=== PATIENT | male | born 1940 | race Caucasian/White ===

== ENCOUNTER 2023-08-21 20:18 | Inpatient (IN) | payer MEDICARE, SELFPAY ==
[2023-08-21 20:31] VITALS: BP 95/62; PULSE 88; RESP 18; TEMP 36.6; O2SAT 99; BMI 19.3
--- NOTE | 2023-08-21 22:35 | XRR_ITS ---
PROCEDURE INFORMATION: Exam: XR Chest Exam date and time: 08/22/2023 12:15 AM Age: 83 years old Clinical indication: Shortness of breath; Additional info: SOB TECHNIQUE: Imaging protocol: Radiologic exam of the chest. Views: 1 view. COMPARISON: No relevant prior studies available. FINDINGS: Limitations: Patient rotation. Lungs: Moderate interstitial coarsening is nonspecific, likely chronic change. No pulmonary consolidation. Pleural spaces: No pleural effusion or pneumothorax. Heart/Mediastinum: Cardiomediastinal silhouette is suboptimally evaluated due to patient rotation. Vasculature: Atherosclerotic calcifications of the aorta are noted. Bones/joints: No acute osseous abnormalities are seen. XR/XR chest 1V portable [id number] IMPRESSION: Moderate interstitial coarsening is nonspecific, likely chronic change. Edema or atypical infection could also cause this appearance.
[2023-08-21 22:37] VITALS: BP 101/82; PULSE 90; RESP 18; O2SAT 100
[2023-08-21 22:41] LABS: Basophils % 0.2 %; Eosinophils # 0.1 10^3/uL (0.0-0.8); Eosinophils % 1.5 %; Lymphocytes # 0.4 10^3/uL (0.8-4.8); Lymphocytes % 6.5 %; Mean Corpuscular Hemoglobin 28.8 pg (27-33); Mean Corpuscular Volume 92.9 fl (82-101); Mean Platelet Volume 11.2 fL (7.4-10.4); Monocytes # 0.6 10^3/uL (0.2-0.9); Monocytes % 9.5 %; Neutrophils # 5.02 10^3/uL (1.8-7.7); Neutrophils % 81.8 %; Nucleated Red Blood Cells % 0.7 %; Platelet Count 144 10^3/cmm (157-399); Red Blood Count 2.26 10^6/uL (3.85-5.65); White Blood Count 6.13 10^3/uL (3.29-11.43)
[2023-08-21 23:00] LABS: Anion Gap 26.1 (5-19); Calcium 7.8 mg/dL (8.5-10.5); Carbon Dioxide 16 mmol/L (22-29); Chloride 100 mmol/L (98-107); Creatinine Clr Calc Pharmacy 5.3783; Glucose 103 mg/dL (65-115); Potassium 6.1 mmol/L (3.5-5.1); Sodium 136 mmol/L (136-145)
[2023-08-21 23:08] LABS: Osmolality Calculated 330 mOsm/kg (285-295)
[2023-08-21 23:09] LABS: Blood Urea Nitrogen 146 mg/dL (8-23)
[2023-08-22] VITALS (45 sets, daily range): BP systolic 80–128; BP diastolic 51–92; PULSE 82–103; RESP 7–23; TEMP 34.9–36.4; O2SAT 91–100; BMI 19.1
--- NOTE | 2023-08-22 01:00 | CTR_ITS ---
PROCEDURE INFORMATION: Exam: CT Abdomen And Pelvis Without Contrast Exam date and time: 08/22/2023 1:09 AM Age: 83 years old Clinical indication: Abnormal findings; Abnormal lab test; Abnormal kidney function lab tests; Patient HX: Anemia with acute renal failure. Bun of 146 and creat of 9.7 TECHNIQUE: Imaging protocol: Computed tomography of the abdomen and pelvis without contrast. Radiation optimization: All CT scans at this facility use at least one of these dose optimization techniques: automated exposure control; mA and/or kV adjustment per patient size (includes targeted exams where dose is matched to clinical indication); or iterative reconstruction. COMPARISON: CR XR chest 1V portable [id number] 08/22/2023 12:15 AM RADIATION DOSE METRICS: Total DLP (mGy-cm): 494.17 FINDINGS: Pleural spaces: Small bilateral pleural effusions with adjacent atelectasis. Heart: Moderate cardiomegaly. No pericardial effusion. Liver: Normal. No mass. Gallbladder and biliary ducts: Gallbladder not well assessed though appears decompressed. Questionable intra and extrahepatic ductal dilatation, not well assessed. Pancreas: The pancreas is not well assessed. Spleen: The spleen is normal. Adrenal glands: The adrenals are not well assessed. Kidneys and ureters: Severe bilateral hydroureteronephrosis the level of the urinary bladder. Stomach and bowel: No evidence of large or small bowel obstruction. Evaluation for bowel wall thickening is limited. Appendix: A normal appendix is not identified. There is no secondary evidence of acute appendicitis. Intraperitoneal space: Hazy diffuse increased density throughout the mesentery likely related to diffuse edema. No fluid collections identified. No obvious focal inflammatory changes. Vasculature: Atherosclerotic calcifications of the aorta are present. No aneurysm is identified. Lymph nodes: Questionable small lymph node adjacent to the rectum which may be related to the prostate measuring 8 x 6 mm. No other obviously enlarged lymph nodes are seen. Urinary bladder: Moderate to markedly distended urinary bladder multiple bladder diverticula, likely related to marked prostatomegaly. Reproductive: Severe prostatomegaly. Extraperitoneal space: Perirectal edema may be related to diffuse edematous change, not well assessed. Bones/joints: No acute osseous abnormalities are seen. Soft tissues: Severe anasarca. CT/CT kidney stone [id number] IMPRESSION: 1. Severe bilateral hydroureteronephrosis the level of the urinary bladder. 2. Moderate to markedly distended urinary bladder multiple bladder diverticula, likely related to marked prostatomegaly. 3. Diffuse increased density throughout the mesentery likely related to diffuse edema. Severe anasarca and small pleural effusions are noted. 4. Questionable intra and extrahepatic ductal dilatation, not well assessed. Correlate with serum bilirubin.
[2023-08-22] MEDS: sodium bicarbonate 8.4% 1 mEq/mL 50mL Syr 50 MEQ IVP (01:22)
[2023-08-22] MEDS: dextrose 10% 250 ML 999 ML IV (01:27)
--- NOTE | 2023-08-22 01:29 | P.HP_ITS ---
Providers/Chief Complaint 2 Chief Complaint: Fatigue History of Present Illness Marleni Montaño is a 83 year old male who present to the hospital with chief complaint generalized weakness and fatigue, recurrent falls, not been able to eat, complaining of chest tightness. In the ER he has been diagnosed with significant anemia, MICHELLE, hyperkalemia. I requested Eubanks catheter placement CT abdomen pelvis. Patient currently is hemodynamically stable on room air. Patient is not endorsing previous history of stroke cancer MS or CHF. He did not provide much history stating that he wanted to void urine. Review of Systems 2 Const: Reports: chills, body aches and change in weight Eyes: Denies: change in vision ENMT: Denies: throat pain Card: Reports: palpitations; Denies: chest pain Resp: Reports: dyspnea GI: Reports: nausea : Denies: flank pain Musc: Denies: neck pain Skin/Breast: Denies: rash Neuro: Denies: headache(s) Psych: Denies: anxiety Medications/Allergies Allergies Allergy/AdvReac Type Severity Reaction Status Date / Time No Known Allergies Allergy Verified 08/22/23 01:26 Vitals/I&O/Wt Last Vital Signs Temp 97.9 F 08/21/23 20:31 Pulse 90 08/21/23 22:37 Resp 18 08/21/23 22:37 BP 101/82 08/21/23 22:37 Pulse Ox 100 08/21/23 22:37 O2 Del Method Room Air 08/21/23 22:37 Weight last 48 hrs Weight 61.235 kg Physical Exam 2 Narrative: Unkept appearance Anasarca Muscle mass loss Protein calorie malnourishment Awake and alert Very hard of hearing Skin bruises and petechiae noted S1, S2 Hemodynamic stable Currently on room air NIH 0 Nonfocal neuroexam Fatigued and tired Data 08/21/23 22:32 08/21/23 22:32 A&P Assessment and plan (1) Hyperkalemia: (2) MICHELLE (acute kidney injury): (3) Physical deconditioning: (4) Sarcopenia: (5) Thrombocytopenia: (6) Anemia: Plan Generalized weakness and fatigue Malaise Anasarca sarcopenia protein calorie malnourishment Unkept appearance Requested CT abdomen pelvis to rule out postobstructive causes of MICHELLE MICHELLE: Post renal obstruction related to prostamegaly causing bladder outlet obstruction Repeat BMP in the morning Requested Eubanks catheter placement No previous creatinine level to compare BUN 146 No typical uremic symptoms Anemia: Normocytic: No hemodynamic instability may be chronic in nature. Patient not a good historian. Check B12 iron folic acid Hyperkalemia: Given hyperkalemia cocktail Deconditioning: Will request PT once patient is more stable New onset CHF: Anasarca Requested echo Full code Goals of care should be discussed with the family once patient is more awake and alert Attestations 2 Medical Necessity Statement*: More than 2 midnights anticipated Diagnoses Hyperkalemia E87.5 MICHELLE (acute kidney injury) N17.9 Physical deconditioning R53.81 Sarcopenia M62.84 Thrombocytopenia D69.6 Anemia D64.9
[2023-08-22] MEDS: albuterol 2.5 mg/3 mL Neb INHALATION (01:30)
[2023-08-22] MEDS: insulin regular-human 100 units/1 mL 9 UNIT IVP (02:04)
[2023-08-22] MEDS: sodium chloride 0.9% 1,000 ML 999 ML IV ×2 (02:09)
[2023-08-22 02:13] LABS: Glucose Point of Care 182 mg/dL (70-110)
[2023-08-22 03:42] LABS: Glucose Point of Care 80 mg/dL (70-110)
[2023-08-22] MEDS: FUROsemide 10 mg/mL SDV 10mL 20 MG IVP (03:53)
[2023-08-22 04:00] LABS: Thyroid Stimulating Hormone 4.12 uIU/mL (0.27-4.20); Vitamin B12 1794 pg/mL (232-1245)
[2023-08-22 04:01] LABS: Estmated Average Glucose 103; Hemoglobin A1C 5.2 % (4.0-6.0)
[2023-08-22 04:01] LABS: Add Urine Culture? Yes; Add Urine Microscopic? YES; Bacteria Urine 3+ /hpf; Bilirubin Urine Neg (Negative); Blood Urine 3+ (Negative); Glucose Urine UA Norm (Normal); Ketones Urine Negative (Negative); Leukocyte Esterase Urine 2+ (Negative); Nitrate Urine Negative (Negative); Protein Urine 1+ (Negative); Squamous Epithelial Cell Urine 0-4 /hpf (0-5); Urine Appearance Cloudy (CLEAR); Urine Color Yellow (Yellow); Urobilinogen Urine Neg (Negative); WBC Urine 80-100 /hpf (0-5); pH Urine 6 (5-7)
--- NOTE | 2023-08-22 04:04 | ECG_ITS ---
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 Measurements Intervals [place] Rate: 89 P: 76 DC: 217 QRS: -57 QRSD: 114 T: 143 QT: 380 QTc: 465 Interpretive Statements SINUS RHYTHM WITH FIRST DEGREE AV BLOCK LEFT ANTERIOR FASCICULAR BLOCK [QRS AXIS <= -45, QR IN I, RS IN II] ANTERIOR MYOCARDIAL INFARCTION , indetermine duration Lateral leads ST changes suggestive of ischemia No previous ECG available for comparison Electronically Signed On 08-22-2023 13:19:30 CDT by Jonah Sinclair M.D. [id number]
--- NOTE | 2023-08-22 04:15 | W.ED.WEAKNES ---
HPI - Weakness General: Chief complaint: Weakness Stated complaint: Fatigue Time Seen by Provider: 08/21/23 23:10 History of Present Illness: 83-year-old gentleman presenting from home. He has confusion and generalized weakness. He does not see a doctor, and has not done so in years. He is a poor historian, and does not give much of the history himself. Physical Exam Const: GENERAL APPEARANCE: cooperative, disheveled, ill appearing and frail appearing NUTRITIONAL APPEARANCE: thin ORIENTATION/CONSCIOUSNESS: Yes awake, Yes oriented to person and Yes oriented to place HENMT: COMMON NORMALS: normocephalic, atraumatic and Normal external nose present HEAD & SCALP: normocephalic and atraumatic FACE & SINUS: normal facial exam and face symmetric NOSE: Normal external nose present Eye: COMMON NORMALS: Equal, round and reactive pupils present and EOMs intact bilaterally PUPIL: Yes Equal, round and reactive pupils present Neck/C-Spine: GENERAL: Yes trachea midline Chest: CHEST: Yes Symmetrical chest wall rise Resp: COMMON NORMALS: normal respiratory effort, No retractions, No use of accessory muscles and clear to auscultation bilaterally AUSCULTATION: clear to auscultation bilaterally Cardio: COMMON NORMALS: regular rate and regular rhythm RATE: regular rate RHYTHM: regular rhythm GI: PALPATION: Yes Tenderness to palpation present (GI) Extremity: COMMON NORMALS: no pedal edema Neuro: GURINDER COMA SCALE: document GCS findings [place] coma scale eye opening: Spontaneous [place] coma scale verbal response: Confused [place] coma scale motor response: Obey commands [place] coma scale total score: 14 SENSORIUM/ORIENTATION: Yes oriented to person and Yes oriented to place SENSORY EXAM: Yes extremities (intact) Psych: COMMON NORMALS: speech normal SPEECH: Yes normal speech Skin: COMMON NORMALS: no rashes or lesions noted GENERAL SKIN EXAM: no rashes or lesions noted Course Vital Signs: Vital signs: Vital Signs Temperature 97.9 F 08/21/23 20:31 Pulse Rate 91 08/22/23 02:13 Respiratory Rate 18 08/22/23 01:31 Blood Pressure 103/78 08/22/23 02:13 Pulse Oximetry 97 08/22/23 02:13 Oxygen Delivery Me thod Room Air 08/22/23 02:13 MDM - Weakness Medical Decision Making This patient is confused apparently at baseline. He is mildly hypotensive. Other laboratories are not remarkable. His hemoglobin is 6.5. His creatinine is 9.7 with a BUN of 146. His potassium is 6.1. He is given a hypokalemia cocktail of sodium bicarbonate, insulin and glucose, albuterol. He is given 2 L of fluid. Abdominal CT reveals severe bilateral hydroureteronephrosis likely due to the urinary outlet obstruction from an enlarged prostate that is significantly enlarged. Eubanks was placed, and immediately 1 L of urine was put out. This was followed by continuous output following. Chest x-ray shows chronic findings. The patient will be admitted, rehydrated, renal function watch closely, etc. Lab Data 08/21/23 22:32 08/21/23 22:32 Radiology Impressions Chest X-Ray 08/21/23 22:35 IMPRESSION: Moderate interstitial coarsening is nonspecific, likely chronic change. Edema or atypical infection could also cause this appearance. Abdomen/Pelvis CT 08/22/23 01:00 IMPRESSION: 1. Severe bilateral hydroureteronephrosis the level of the urinary bladder. 2. Moderate to markedly distended urinary bladder multiple bladder diverticula, likely related to marked prostatomegaly. 3. Diffuse increased density throughout the mesentery likely related to diffuse edema. Severe anasarca and small pleural effusions are noted. 4. Questionable intra and extrahepatic ductal dilatation, not well assessed. Correlate with serum bilirubin. Laboratory Results WBC 6.13 10^3/uL (3.29-11.43) 08/21/23: RBC 2.26 10^6/uL (3.85-5.65) L 08/21/23: Hgb 6.50 g/dL (11.27-16.99) L* 08/21/23: Hct 21.0 % (37-53) L 08/21/23: MCV 92.9 fl (82-101) 08/21/23: MCH 28.8 pg (27-33) 08/21/23: MCHC 31.0 g/dL (30-55) 08/21/23: RDW 17.0 % (12.1-15.1) H 08/21/23: Plt Count 144 10^3/cmm (157-399) L 08/21/23: MPV 11.2 fL (7.4-10.4) H 08/21/23 22:32 Neut % (Auto) 81.8 % 08/21/23 22: Lymph % (Auto) 6.5 % 08/21/23 22:32 [place] % (Auto) 9.5 % 08/21/23 22:32 Eos % (Auto) 1.5 % 08/21/23 22:32 Baso % (Auto) 0.2 % 08/21/23 22: Neut # (Auto) 5.02 10^3/uL (1.8-7.7) 08/21/23 22: Lymph # (Auto) 0.4 10^3/uL (0.8-4.8) L 08/21/23 22: [place] # (Auto) 0.6 10^3/uL (0.2-0.9) 08/21/23 22: Eos # (Auto) 0.1 10^3/uL (0.0-0.8) 08/21/23 22: Baso # (Auto) 0.0 10^3/uL (0.0-0.1) 08/21/23 22: Nucleated RBC % (auto) 0.7 % 08/21/23: Nucleated RBCs # 0.0 /100WBC 08/21/23 22:32 Sodium 136 mmol/L (136-145) 08/21/23 22: Potassium 6.1 mmol/L (3.5-5.1) H 08/21/23 22:32 Chloride 100 mmol/L (98-107) 08/21/23 22: Carbon Dioxide 16 mmol/L (22-29) L 08/21/23 22:32 Anion Gap 26.1 (5-19) H 08/21/23 22:32 BUN 146 mg/dL (8-23) H* 08/21/23 22:32 Creatinine 9.7 mg/dL (0.7-1.2) H* 08/21/23 22:32 GFR Calculation Not Reportable 08/21/23 22:32 Glucose 103 mg/dL (65-115) 08/21/23 22:32 Estimat Average Glucose 103 08/21/23 22:32 Hemoglobin A1c 5.2 % (4.0-6.0) 08/21/23 22:32 Calculated Osmolality 330 mOsm/kg (285-295) H 08/21/23 22:32 Calcium 7.8 mg/dL (8.5-10.5) L 08/21/23 22:32 Vitamin B12 1794 pg/mL (232-1245) H 08/21/23 22:32 TSH 4.12 uIU/mL (0.27-4.20) 08/21/23 22:32 All radiology interpretation(s) finalized by discharge Discharge Plan Discharge Patient Disposition: Admitted As Inpatient Admit Provider: Jacy Lane Clinical Impression: MICHELLE (acute kidney injury), Hyperkalemia, Acute on chronic urinary retention Condition: Stable Coding Level of Care Code ED Physical Therapist Assistant for Sophia Kelsey
--- NOTE | 2023-08-22 05:01 | ECG_ITS ---
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 Measurements Intervals [place] Rate: 95 P: 4 [place]: 233 QRS: -57 QRSD: 118 T: 126 QT: 373 QTc: 470 Interpretive Statements SINUS RHYTHM WITH FIRST DEGREE AV BLOCK ANTEROLATERAL MYOCARDIAL INFARCTION , PROBABLY RECENT [40+ ms Q WAVE IN I/aVL/V3-V6] Compared to ECG 08/22/2023 04:09:00 No significant changes Electronically Signed On 08-22-2023 13:24:09 CDT by Jonah Sinclair M.D. [id number]
[2023-08-22 05:11] LABS: Anion Gap 28.1 (5-19); Calcium 7.2 mg/dL (8.5-10.5); Carbon Dioxide 14 mmol/L (22-29); Chloride 104 mmol/L (98-107); Creatinine Clr Calc Pharmacy 5.6705; Glucose 62 mg/dL (65-115); Magnesium 1.9 mg/dL (1.7-2.3); Phosphorus 6.4 mg/dL (2.5-4.5); Potassium 5.1 mmol/L (3.5-5.1); Sodium 141 mmol/L (136-145)
[2023-08-22 05:13] LABS: Troponin(5th) Baseline 1323 ng/L (0-15)
[2023-08-22] MEDS: lidocaine 2% viscous 15 ML, aluminum-mag hydrox-simethicon 30 ML, sucralfate oral liq 1 GM PO (05:19)
[2023-08-22] MEDS: morphine 4 mg/mL SDV 1 mL 2 MG IVP ×2 (05:20→10:42)
[2023-08-22 05:33] LABS: Basophils % 0.2 %; Eosinophils # 0.1 10^3/uL (0.0-0.8); Eosinophils % 1.2 %; Hematocrit 23.7 % (37-53); Lymphocytes # 0.5 10^3/uL (0.8-4.8); Lymphocytes % 10.5 %; Mean Corpuscular Hemoglobin 29.5 pg (27-33); Mean Corpuscular Volume 98.3 fl (82-101); Mean Platelet Volume 11.5 fL (7.4-10.4); Monocytes # 0.3 10^3/uL (0.2-0.9); Monocytes % 6.7 %; Neutrophils # 3.99 10^3/uL (1.8-7.7); Neutrophils % 80.4 %; Nucleated Red Blood Cells % 0.6 %; Platelet Count 141 10^3/cmm (157-399); Red Blood Count 2.41 10^6/uL (3.85-5.65); Red Cell Distribution Width 17.2 % (12.1-15.1); White Blood Count 4.96 10^3/uL (3.29-11.43)
[2023-08-22 05:37] LABS: Osmolality Calculated 336 mOsm/kg (285-295)
[2023-08-22 05:38] LABS: Blood Urea Nitrogen 141 mg/dL (8-23)
[2023-08-22 05:42] LABS: NT Pro B Type Natriuretic Pept > 35000 pg/mL (0-450)
[2023-08-22 05:45] LABS: Glucose Point of Care 89 mg/dL (70-110)
--- NOTE | 2023-08-22 05:50 | PC.NURSE ---
Pt complaint of severe chest pain shortly after arriving on the floor. Vitals taken 0400 106/81 HR 90. Pt complaint of feeling like something was sitting on his chest. Physician called, EKG ordered and trop series results sent to [facility]. Pt continued to scream out in pain was very agitated trying to get out of bed and O2 at this time 80%. O2 applied and DR called again. At this time ordered GI cocktail and troponins another EKG ordered. After troponin resulted 1323 temp 95.8 rectally orders for ICU were given. Patient wheeled downstairs with belongings by this nurse and family called to notify of transfer.
[2023-08-22] MEDS: glucagon 1 mg/mL KIT 1 mL IM (05:56)
[2023-08-22 05:59] LABS: Glucose Point of Care 65 mg/dL (70-110)
[2023-08-22 06:14] LABS: Ferritin 121 ng/mL (30-400); Iron 14 ug/dL (59-158); Percent Saturation 5.7 % (20-50); Total Iron Binding Capacity 244 mcg/dl; Unsaturated Iron Binding 230 ug/dL (112-347)
[2023-08-22] MEDS: sodium bicarbonate 150 MEQ in dextrose 5% 1,000 ML 100 MEQ IV (06:16)
--- NOTE | 2023-08-22 06:21 | ECG_ITS ---
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 Measurements Intervals [place] Rate: 93 P: 76 SC: 211 QRS: -58 QRSD: 121 T: 134 QT: 358 QTc: 445 Interpretive Statements SINUS RHYTHM WITH FIRST DEGREE AV BLOCK POSSIBLE RIGHT VENTRICULAR CONDUCTION DELAY [RSR (QR) IN V1/V2] LEFT ANTERIOR FASCICULAR BLOCK [QRS AXIS <= -45, QR IN I, RS IN II] ANTEROLATERAL MYOCARDIAL INFARCTION , PROBABLY RECENT [40+ ms Q WAVE IN I/aVL/V3-V6] ACUTE [place] Compared to ECG 08/22/2023 05:01:04 No significant changes Electronically Signed On 08-22-2023 16:09:14 CDT by Jonah Sinclair M.D. [id number]
--- NOTE | 2023-08-22 06:29 | PC.NURSE ---
Patient arrived from [facility] at 0550. Patient was confused, screaming and thrashing around. POC blood glucose was 65, Glucagon given as ordered. Oxygen saturation was 75% on 5L nc, patient placed on 15L nonrebreather. Patient short of breath, complaining of chest pain. Rectal temp 94.8, dontrell hugger applied. Patient's abdomen very distended and hard. Dr. Lane notified of these findings and ordered bipap. Patient is cyanotic. Sore on right side of his chin. Blood sugar is up to 83, on Bicard drip in D5. Bipap placed by RT. Unable to obtain SPO2 on on fingers or forehead. Patient remains confused and screaming.
[2023-08-22 06:45] LABS: Glucose Point of Care 83 mg/dL (70-110)
[2023-08-22 06:49] LABS: Glucose Point of Care 98 mg/dL (70-110)
--- NOTE | 2023-08-22 07:22 | PC.NURSE ---
Blood transfusion ordered and ready from the blood bank. 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 is also in this ICU and also currently mentally incompetent to make decisions. Nurse called Son Gregg Montaño for consent. Gregg stated that the patient is jehovah witness and is adamant to not receive blood products.
[2023-08-22 07:32] LABS: Troponin 5 2HR Delta -47 ABS# (0-10)
--- NOTE | 2023-08-22 07:33 | P.CONIM_ITS ---
Providers/Reason For Consult 2 Consulting Physician/Specialty*: Dangelo English MD, telemetry nephrology Reason for Consult*: Acute kidney injury, increased anion gap metabolic acidosis Requesting Physician: Dr Karli Lane Attending Physician: Jacy Lane MD History of Present Illness History of Present Illness Marleni Montaño is a 83 year old male admitted through the ER yesterday with worsening mental status. Patient was found to have acute kidney injury increased anion gap metabolic acidosis, hyperkalemia. Patient CT scan showing severe bilateral hydroureteronephrosis with bladder swelling. The patient a Eubanks placed with good urine output. The patient was also found to be anemic. Per the chart the patient has Jehovah's Witnesses police and does not want to get blood transfusion. Patient had a non-ST elevation [place]. The patient was transferred to the ICU. Renal was called to see the patient. The patient is confused and unable to give me history. Review of Systems 2 Narrative: Confused short of breath. Unable to give a history due to poor mental status Medications/Allergies Allergies Allergy/AdvReac Type Severity Reaction Status Date / Time No Known Allergies Allergy Verified 08/22/23 01:26 Current Medications Generic Name Dose Route Start Last Admin Trade Name Freq PRN Reason Stop Dose Admin Furosemide 20 mg 08/22/23 03:17 08/22/23 03:53 Furosemide 10 Mg/Ml Sdv 10ml IVP 20 mg Q24H CATERINA Administration Sodium Bicarbonate 150 meq/ 1,150 mls @ 100 mls/hr 08/22/23 05:52 08/22/23 06:16 Dextrose IV 08/22/23 17:21 100 mls/hr .[id number] ONE Administration Vitals/I&O/Wt Last Vital Signs Temp 94.8 F L 08/22/23 06:29 Pulse 96 08/22/23 07:18 Resp 11 L 08/22/23 07:15 BP 113/87 08/22/23 07:15 Pulse Ox 100 08/22/23 05:20 O2 Del Method Room Air 08/22/23 05:20 FiO2 100 08/22/23 06:24 08/21/23 08/22/23 08/22/23 22:59 06:59 14:59 Intake Total 1250 / 1250 Output Total 1925 / 1925 500 / 500 Balance -675 / -675 -500 / -500 Weight last 48 hrs Weight 58.151 kg Weight 60.464 kg Weight 61.235 kg Physical Exam 2 Narrative: Elderly man in bed sitting up fighting with the staff. Has BiPAP on. HEENT normocephalic atraumatic. Neck is supple Lungs dull bases otherwise clear. Heart regular positive S1-S2 Abdomen soft positive bowel sounds. Extremities foot edema. Positive Eubanks catheter. Neuro confused Patient seen and examined using A/V equipment with a nurse as a telehealth visit Urinary Catheter Management: Eubanks: Cath Placed During This Visit: yes Reason for Continuing Indwelling Catheter: Accurate Measurement of Urinary Output in Critically Ill Patients Urinary Catheter Date of Insertion: 08/22/23 Urinary Catheter Time of Insertion: 02:25 Data 08/22/23 05:26 08/22/23 04:42 A&P Assessment and plan (1) MICHELLE (acute kidney injury): 83-year-old gentleman 1. Acute kidney injury from bilateral hydroureteronephrosis and enlarged bladder. Concern for prostate etiology of obstructive uropathy. I am also concerned the patient could have another obstructing mass or malignancy that could have caused his acute kidney injury. Please have urology see the patient. Based on imaging and blood test this is likely been a very chronic process. I will therefore take time for his kidney function to improve now that we have cleared his obstruction. And his renal function may not improve. At this time I will continue bicarbonate drip. Monitor for dialysis needs. 2. Non-ST elevation OH as per cardiology 3. Anemia from iron deficiency and renal failure. Will give Epogen and IV iron. Patient's family is refusing blood as they are Yarsanism. 4. Hyperkalemia has improved from a potassium of 6.1-5.1 5. Increased anion gap metabolic acidosis the patient is on bicarb drip we will check an ABG. 6. Creatinine improved from 9.7-9.2. 7. Hyperphosphatemia can monitor for now may need a binder. 7. UTI will give ceftriaxone monitor urine culture. Patient seen and examined using A/V equipment. Patient is confused. The nurse to help significantly in this patient. Plan See above. Consult Attestations 2 Medical Necessity Statement: UTI, obstructive uropathy, altered mental status, anemia Time Spent in Patient Care: Greater than 35 minutes (>than 50% of time spent in counselling and/or direct pt care on unit) . Coding Level of Care Code Acute Code for Chg Fwd Diagnoses MICHELLE (acute kidney injury) N17.9
[2023-08-22 07:35] LABS: Troponin 5 2HR 1276 ng/L (0-15)
[2023-08-22] MEDS: haloperidol inj 5 mg/mL INJ 1 mL 1 MG IM (07:57)
[2023-08-22] MEDS: ferric gluconate 125 MG in sodium chloride 0.9% (100 ml) 100 ML 110 MG IV (07:59)
[2023-08-22] MEDS: epoetin alfa 10,000 unit/mL INJ 10000 UNIT SUBCUT (08:00)
[2023-08-22 08:04] LABS: ABG PCO2 26.8 mmHg (35-45); ABG PH Result 7.37 (7.35-7.45); Alveolar-Arterial Oxygen Gradi 44.3 mmHg (5-10); Arterial Blood Gas Hematocrit 24.2 % (42-52); Blood Gas Allen Test Pos; Blood Gas Operator Identificat CAK; Blood Gas Sample Site Brachial, left; Blood Gas Sample Type Arterial; Carboxyhemoglobin 1.2 %THgb (0.4-20.1); HCO3 ABG 15.4 mmol/L (22-26); HGB O2 Sat 99.1 % (95-100); Methemoglobin 0.4 % (0.4-1.5); Oxygen Device BIPAP; Oxygen Saturation ABG > 100.0; PO2 FiO2 Ratio Arterial Blood 332; Potassium Level - ABG 5.2 mmol/L (3.5-5.0); Total Hemoglobin 7.9 g/dL (14-18)
[2023-08-22 08:14] LABS: Hepatitis C Virus Antibody Non-Reactive (Nonreactive)
--- NOTE | 2023-08-22 08:26 | PC.NURSE ---
Patient is complaining of stomach gas , keeps trying to get out of bed. Patient is demanding to be allowed to eat baking soda. NUrse has explained to the patient that he has a suspected GI bleed, has had a heart attack, and very low blood levels. He is unable to get out of bed safely. patient is also attempting to pull off bipap and pull out aragon catheter. NUrse alerted Dr gray to patient behaviors as well as critical lab which recently resulted (troponin of 1276). Received orders for IM haldol. Haldol administered. Patient has started to become calmer after 20 minutes. Still requires frequent redirection and close observation.
[2023-08-22] MEDS: pantoprazole 40 mg SDV IVP (09:07)
[2023-08-22] MEDS: cefTRIAXone 1,000 MG in sodium chloride 0.9% (plus) 50 ML 100 MG IV (09:09)
[2023-08-22 09:29] LABS: C.Diff PCR (Lab) NEGATIVE (Negative)
--- NOTE | 2023-08-22 10:08 | ECG_ITS ---
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 Measurements Intervals [place] Rate: 96 P: 52 [place]: 199 QRS: -63 QRSD: 121 T: 112 QT: 377 QTc: 478 Interpretive Statements SINUS RHYTHM POSSIBLE RIGHT VENTRICULAR CONDUCTION DELAY [RSR (QR) IN V1/V2] LEFT ANTERIOR FASCICULAR BLOCK [QRS AXIS <= -45, QR IN I, RS IN II] ANTEROLATERAL MYOCARDIAL INFARCTION , PROBABLY RECENT [40+ ms Q WAVE IN I/aVL/V3-V6] ACUTE [place] Compared to ECG 08/22/2023 06:36:03 First degree AV block no longer present Myocardial infarct finding still present (Pt is for comfort measures due to co-morbidities) Electronically Signed On 08-22-2023 16:08:01 CDT by Jonah Sinclair M.D. [id number]
[2023-08-22 10:17] LABS: Glucose Point of Care 115 mg/dL (70-110)
--- NOTE | 2023-08-22 10:32 | P.MISC_ITS ---
Miscellaneous Note Purpose of Documentation: Patient's case was discussed extensively with son. States that patient and his were previously Jehovah's Witnesses, though they have not practiced in 10 years to hold some of the same believes. Patient's son believes to the best of his knowledge that his father would not be okay receiving any kind of blood products or albumin. Discussed with him that patient has NSTEMI which is unable to be anticoagulated, unable to give antiplatelet agents due to severe anemia as recommended by cardiology per discussion with hospitalist overnight. Fecal occult blood is negative. Unknown how long patient's creatinine has been at 9. Suspect that patient may have chronic kidney disease with worsening anemia over several months. He is complaining of abdominal pain which may be community engagement representative of developing mesenteric necrosis. CT of the abdomen and pelvis showed bilateral hydronephrosis and severe bladder outlet obstruction. Patient has a Eubanks catheter in place. 1000 cc of urine was obtained after placement of the Eubanks catheter. Since then he has had 50 cc of urine output. Patient is currently showing signs of multiorgan failure with renal failure, may need dialysis. Discussed with the son the possibility of dialysis , son indicates that they would be okay with dialysis. Nephrology recommends urology assessment, discussed with son that we do not have any urology services at our hospital. I offered transfer to a higher center that would have urology serv ices available, however son declines this transfer. Apparently patient had refused to come to the hospital even today. He was only brought in by EMS when his was sick and needed to come to the hospital, patient himself was noted to be altered by EMS and was brought in as a patient additionally. He would want to remain at the same hospital as his therefore transfer has been declined. With his multiorgan failure involving the heart (NSTEMI), kidney failure , severe anemia, possible developing mesenteric ischemia, patient's prognosis is extremely grave. Patient's son would like to continue medical management for now, however with any deterioration in his clinical status, will proceed with comfort care management Reviewed management of severe anemia and blood loss patient protocol from other bloodless hospitals and published research. Will order iron sucrose 100 mg IV for 5 days, erythropoietin 20,000 units subcutaneously once daily for 5 days, discussed with son that EPO in itself may be thrombogenic in nature, folic acid 1 mg p.o. twice daily, vitamin B12 1000 mcg IM one-time. (Management of anemia in patients who de last blood transfusion PM ID:?[id number]?DOI:[email or web address]) .
[2023-08-22] MEDS: epoetin alfa 20,000 unit/mL MDV (ESRD) 20000 UNIT SUBCUT (10:54)
[2023-08-22 10:55] LABS: Basophils % 0.2 %; Hematocrit 22.7 % (37-53); Lymphocytes # 0.1 10^3/uL (0.8-4.8); Lymphocytes % 1.2 %; Mean Corpuscular HGB Conc 30.8 g/dL (30-55); Mean Corpuscular Volume 97.4 fl (82-101); Mean Platelet Volume 10.6 fL (7.4-10.4); Monocytes # 0.5 10^3/uL (0.2-0.9); Monocytes % 4.4 %; Neutrophils # 10.51 10^3/uL (1.8-7.7); Neutrophils % 93.6 %; Nucleated Red Blood Cells % 0.2 %; Platelet Count 134 10^3/cmm (157-399); Red Blood Count 2.33 10^6/uL (3.85-5.65); Red Cell Distribution Width 17.2 % (12.1-15.1); White Blood Count 11.23 10^3/uL (3.29-11.43)
[2023-08-22 11:10] LABS: Anion Gap 23.1 (5-19); Carbon Dioxide 19 mmol/L (22-29); Chloride 100 mmol/L (98-107); Creatinine Clr Calc Pharmacy 5.0478; Glucose 171 mg/dL (65-115); Potassium 5.1 mmol/L (3.5-5.1); Sodium 137 mmol/L (136-145)
[2023-08-22 11:14] LABS: Vitamin B12 1747 pg/mL (232-1245)
[2023-08-22 12:22] LABS: Troponin 5 6HR 1099 ng/L (0-15); Troponin 5 6HR Delta -224 ng/L (0-12)
[2023-08-22 12:23] LABS: Osmolality Calculated 332 mOsm/kg (285-295)
[2023-08-22 12:24] LABS: Blood Urea Nitrogen 135 mg/dL (8-23)
[2023-08-22 13:29] LABS: Glucose Point of Care 125 mg/dL (70-110)
--- NOTE | 2023-08-22 13:50 | P.CONIM_ITS ---
Providers/Reason For Consult 2 Consulting Physician/Specialty*: Cardiology Reason for Consult*: NSTEMI Requesting Physician: Dr. Rogers Attending Physician: Oxana Rogers MD History of Present Illness History of Present Illness Marleni Montaño is a 83 year old male with significant comorbidities admitted last night with multiple problems including acute on chronic renal failure with a creatinine of more than 9, potassium 6, marked anemia hemoglobin less than 7. His troponin was also elevated with ST changes on the EKG, likely acute WA. Since admission patient has been managed very conservatively due to multiple comorbidities as well as patient and family being Jehovah witness and refusing blood transfusion. Apparently patient also had some acute abdominal pathology and the surgery is not being planned because of same reasons. Currently patient is lying comfortably in the bed. He is opens eyes to the verbal commands but very poor historian. He seems to deny any chest discomfort although it is difficult to communicate the patient because of his current mental status. Review of Systems 2 Narrative: Detail systemic review unable to obtain from the patient. Patient is semiresponsive and not communicative. Medications/Allergies Allergies Allergy/AdvReac Type Severity Reaction Status Date / Time albumin colloid, human AdvReac Unknown refuses - Verified 08/22/23 10:34 JW blood products AdvReac Unknown JW Uncoded 08/22/23 10:34 patient- refuses Current Medications Generic Name Dose Route Start Last Admin Trade Name Freq PRN Reason Stop Dose Admin Epoetin Tanner 20,000 unit 08/22/23 10:45 08/22/23 10:54 Epoetin Tanenr 20,000 Unit/Ml Mdv (Esrd) SUBCUT 20,000 unit Q24H CATERINA Administration Haloperidol Lactate 1 mg 08/22/23 07:54 08/22/23 07:57 Haloperidol Inj 5 Mg/Ml Inj 1 Ml IM 1 mg Q4H PRN Administration AGITATION Ceftriaxone Sodium 1,000 mg/ 50 mls @ 100 mls/hr 08/22/23 09:00 08/22/23 10:08 Sodium Chloride IV Infused DAILY CATERINA Infusion Protocol Sodium Bicarbonate 150 meq/ 1,150 mls @ 100 mls/hr 08/22/23 05:52 08/22/23 06:16 Dextrose IV 08/22/23 17:21 100 mls/hr .[id number] ONE Administration Morphine Sulfate 2 mg 08/22/23 10:24 08/22/23 10:42 Morphine 4 Mg/Ml Sdv 1 Ml IVP 2 mg Q4H PRN Administration SEVERE PAIN Pantoprazole Sodium 40 mg 08/22/23 09:00 08/22/23 09:07 Pantoprazole 40 Mg Sdv IVP 40 mg BID CATERINA Administration Senna/Docusate Sodium 1 tab 08/22/23 09:00 08/22/23 08:58 Sennosides-Docusate Tablet PO Not Given DAILY CATERINA Vitals/I&O/Wt Last Vital Signs Temp 97.5 F L 08/22/23 09:15 Pulse 92 08/22/23 09:30 Resp 12 08/22/23 10:42 BP 106/79 08/22/23 09:30 Pulse Ox 98 08/22/23 10:42 O2 Del Method BiPAP 08/22/23 09:24 FiO2 30 08/22/23 09:24 08/21/23 08/22/23 08/22/23 22:59 06:59 14:59 Intake Total 1250 / 1250 160 / 160 Output Total 1925 / 1925 675 / 675 Balance -675 / -675 -515 / -515 Weight last 48 hrs Weight 128 lb 3.2 oz Weight 133 lb 4.8 oz Weight 135 lb Physical Exam 2 Narrative: Patient laying comfortably on the bed. He appears not to be any respiratory or any other distress from pain. Vitals reveal blood pressure 104/72. Pulse 90/min regular. Const: OTHER: Patient is a weak lethargic. Appears pale and malnourished. HENMT: OTHER: Pale skin. There there are elevated neck veins however difficult to assess proper JVD. Resp: OTHER: Good air entry bilaterally. There are some rales at the bases more on the left side. Cardio: OTHER: Sinus tachycardia with a normal first and sound and there there is soft systolic murmur at the aortic area. Likely aortic sclerosis and due to anemia. GI: OTHER: Soft nontender abdomen. Bowel sounds audible. Extremity: OTHER: Patient appears to move all 4 limbs. Trace pedal edema bilaterally. Neuro: OTHER: Patient responsive to verbal commands however difficult to communicate. Moves all 4 limbs. Skin: OTHER: Warm and dry. Urinary Catheter Management: Eubanks: Cath Placed During This Visit: yes Reason for Continuing Indwelling Catheter: Accurate Measurement of Urinary Output in Critically Ill Patients Urinary Catheter Date of Insertion: 08/22/23 Urinary Catheter Time of Insertion: 02:25 Data 08/22/23 10:35 08/22/23 10:35 Micro: Microbiology 08/22/23 08:15 Occult Blood (FIT) - Final Stool - Stool Aspirate A&P Assessment and plan (1) NSTEMI (non-ST elevated myocardial infarction): Plan 83-year-old gentleman with significant comorbidities now admitted with multiple acute systemic pathologies including acute on chronic renal failure elevated potassium and elevated troponin, NSTEMI. Patient is markedly anemic with hemoglobin less than 7. Patient is in the family has refused blood transfusion and due to being a Jehovah witness. Patient is now being managed medically. Considering the degree of anemia he is not a candidate for dual antiplatelets or anticoagulation. If blood pressure allows I recommend low-dose of beta-jewel. And oral nitro. Not a candidate for coronary angio or any active intervention. Rest of systemic pathologies management as per medicine team. Coding Level of Care Code Acute [facility] Diagnoses NSTEMI (non-ST elevated myocardial infarction) I21.4
[2023-08-22 14:33] LABS: Potassium, Radom Urine 38 mmol/L; Urine Creatinine 53 mg/dL (39-259); Urine Random Chloride 40 mmol/L; Urine Random Sodium 51 mmol/L
--- NOTE | 2023-08-22 16:40 | P.PN_ITS ---
Subjective 2 Subjective: Had an extensive discussion with son earlier this morning on the phone. Thereafter patient presented at bedside this afternoon and again had a lengthy discussion with him and the patient at bedside. Patient is currently more awake than before. He is able to correctly state his name, age, date of . I presented him with the information that he is suffering currently from multiorgan failure including NSTEMI, kidney failure, severe anemia. Discussed recommendations for blood transfusion, hemodialysis, inability to anticoagulate or use antiplatelets due to low hemoglobin. Discussed that none of the other interventions such as angiogram, or dialysis would be feasible without undergoing blood transfusion and trying to get his hemoglobin up. Discussed fecal occult blood being negative. Patient was unable to repeat any of the information presented to him. I asked him if he would like us to proceed with any of the interventions discussed above, he states that he would as long as he is allowed to take a shower and get up in bed. When presented with the fact that current walking or bathing are unrelated to angiogram or dialysis, he seems confused and disoriented. I truly do not think patient understands the gravity of information provided to him. He is unable to repeat any information back to me. He states that he is overwhelmed. His son is also stating that patient has been experiencing memory disturbances over the past several months. He has not followed with any physician but family has suspected dementia developing over several months. He has shown some difficult behavior, lack of comprehension and understanding with regards to his living conditions in the past as well. His son states that knowing his father patient would not have wanted any invasive interventions, would not have wanted blood transfusions. He is unlikely to be compliant with long-term dialysis or medications as recommended. He currently lives off the grid , has no water in the home and he is very unlikely to be compliant with follows ups. Son wishes to proceed with comfort care management, focusing on symptom relief only. Medications: Reviewed: Yes Vitals/I&O/Wt Last Vital Signs Temp 96.4 F L 08/22/23 13:45 Pulse 84 08/22/23 14:00 Resp 17 08/22/23 13:45 BP 98/56 08/22/23 13:45 Pulse Ox 100 08/22/23 13:45 O2 Del Method Nasal Cannula 08/22/23 13:45 O2 Flow Rate 2 08/22/23 13:45 FiO2 30 08/22/23 09:24 08/22/23 08/22/23 08/22/23 06:59 14:59 22:59 Intake Total 1250 / 1250 160 / 160 Output Total 1925 / 1925 675 / 675 Balance -675 / -675 -515 / -515 Weight last 48 hrs Weight 58.151 kg Weight 60.464 kg Weight 61.235 kg Physical Exam 2 Narrative: General: able to tell name, age, and place however does not comprehend any medical information that has been presented. HEENT: PERRLA, pupils bilaterally equal and reactive, pallors not present Chest: scattered wheezing B/L CVS: S1-S2 regular, no murmurs, no tachycardia, no gallops, no rubs Abdomen: soft except for firm in the suprapubic region, c/o pain and gas Neuro: no focal motor deficits grossly. Urinary Catheter Management: Eubanks: Cath Placed During This Visit: yes Reason for Continuing Indwelling Catheter: Accurate Measurement of Urinary Output in Critically Ill Patients Urinary Catheter Date of Insertion: 08/22/23 Urinary Catheter Time of Insertion: 02:25 Data 08/22/23 10:35 08/22/23 10:35 Micro: Microbiology 08/22/23 08:15 Occult Blood (FIT) - Final Stool - Stool Aspirate A&P Assessment and plan (1) Hyperkalemia: (2) MICHELLE (acute kidney injury): (3) Physical deconditioning: (4) Sarcopenia: (5) Thrombocytopenia: (6) Anemia: Plan Transition to comfort care management prn morphine for pain management prn ativan for anxiety management Gi cocktail, protonix and tums for dyspepsia Eubanks for comfort Attestations 2 Medical Necessity Statement*: comfort care management Coding Level of Care Code Acute Code for Chg Fwd High Time for a total of 60 minutes, includes reviewing past or interval history, examining/interviewing patient, placing orders, counseling patient/family/other support, updating patient/family/other support, discussing plan of care with staff, communicating with other healthcare providers, documenting encounter and coordinating care Other Coding Information Prolonged care (total time indicated above or notated here) Diagnoses Hyperkalemia E87.5 MICHELLE (acute kidney injury) N17.9 Physical deconditioning R53.81 Sarcopenia M62.84 Thrombocytopenia D69.6 Anemia D64.9
[2023-08-23] VITALS (8 sets, daily range): BP systolic 84–112; BP diastolic 61–76; PULSE 90–96; RESP 16–19; TEMP 36.4; O2SAT 92–94
[2023-08-23] MEDS: morphine 4 mg/mL SDV 1 mL IVP ×4 (03:08→09:06)
[2023-08-23] MEDS: LORazepam 2 mg/mL INJ 1 mL IVP (09:09)
--- NOTE | 2023-08-23 12:58 | P.PN_ITS ---
Subjective 2 Subjective: Patient is on comfort measures As stated Try to get out of bed Requiring more opioids Spoke with the case management, they told me that hospice care at custodial might be [id number], will touch with his son today Vitals/I&O/Wt Last Vital Signs Temp 96.4 F L 08/22/23 13:45 Pulse 96 08/23/23 08:00 Resp 18 08/23/23 09:06 BP 112/76 08/23/23 08:00 Pulse Ox 93 08/23/23 08:00 O2 Del Method Room Air 08/23/23 08:00 O2 Flow Rate 2 08/22/23 13:45 FiO2 30 08/22/23 09:24 08/22/23 08/23/23 08/23/23 22:59 06:59 14:59 Intake Total 1140 / 1300 50 / 50 Output Total 350 / 1025 350 / 350 Balance 1140 / 625 -350 / 275 -300 / -300 Weight last 48 hrs Weight 58.151 kg Weight 60.464 kg Weight 61.235 kg Physical Exam 2 Narrative: Multiple petechiae bruises all lower extremities Patient verbally redirectable Agitated Trying to get out of bed Hemodynamically stable Currently on room air S1, S2 Currently on room air Weak and lethargic Protein calorie malnourishment Urinary Catheter Management: Eubanks: Cath Placed During This Visit: yes Reason for Continuing Indwelling Catheter: Acute Urinary Retention or Obstruction Urinary Catheter Date of Insertion: 08/22/23 Urinary Catheter Time of Insertion: 02:25 Data 08/22/23 10:35 08/22/23 10:35 Micro: Microbiology 08/22/23 02:33 Urine Culture - Preliminary Urine,Clean Catch 08/22/23 08:15 Occult Blood (FIT) - Final Stool - Stool Aspirate A&P Assessment and plan (1) Physical deconditioning: (2) Sarcopenia: (3) Anemia: (4) Acute on chronic urinary retention: (5) Hyperkalemia: (6) MICHELLE (acute kidney injury): (7) Thrombocytopenia: (8) NSTEMI (non-ST elevated myocardial infarction): (9) Need for comfort care: Plan Will touch base with his son to see if he would opt for custodial hospice care, As per the case management there could be a [id number] cost For now we are using Ativan and morphine Patient is hemodynamically stable GI bleed, non-STEMI, MICHELLE, Conservative approach with comfort care for now Attestations 2 Medical Necessity Statement*: Continue medical management Diagnoses Physical deconditioning R53.81 Sarcopenia M62.84 Anemia D64.9 Acute on chronic urinary retention R33.9 Hyperkalemia E87.5 MICHELLE (acute kidney injury) N17.9 Thrombocytopenia D69.6 NSTEMI (non-ST elevated myocardial infarction) I21.4 Need for comfort care
[2023-08-24 01:20] VITALS: RESP 15
[2023-08-24] MEDS: morphine 4 mg/mL SDV 1 mL IVP ×4 (01:20→15:28)
[2023-08-24 08:43] VITALS: RESP 18
--- NOTE | 2023-08-24 11:47 | PM.DCS ---
Discharge Providers Date of Admission: 08/22/23 01:36 Date of Discharge: August 24, 2023 Attending Provider at Admission: Jacy Lane MD Attending Provider at Discharge: Jacy Lane MD Diagnoses at Discharge Discharge Diagnosis (1) Physical deconditioning: Status: Acute (2) Sarcopenia: Status: Acute (3) Anemia: Status: Acute (4) Acute on chronic urinary retention: Status: Acute (5) Hyperkalemia: Status: Acute (6) MICHELLE (acute kidney injury): Status: Acute (7) Thrombocytopenia: Status: Acute (8) NSTEMI (non-ST elevated myocardial infarction): Status: Acute (9) Need for comfort care: Status: Acute Reason for Visit Reason for Visit: Fatigue Hospital Course Hospital Course 83-year-old male who presented to the hospital along his with chief complaint of worsening of shortness of breath, pain at chest discomfort. He was diagnosed with non-STEMI on admission, cardiology was consulted, his hemoglobin was below 7, he was Rastafarian, refused blood transfusion, decision was made not to put him on aspirin Plavix on heparin drip secondary to significant anemia. He also suffered with MICHELLE secondary to bladder outlet obstruction, Eubanks catheter was placed, patient had significant anasarca Case was discussed with the son, patient has no capacity to make decision for himself, son was concerned about his cognitive impairment and dementia, patient was transitioned to comfort care, [facility]. Physical Exam Narrative: Malnourished Unkept appearance Sarcopenia Oriented to himself Eubanks catheter in place Urinary Catheter Management: Eubanks: Cath Placed During This Visit: yes Reason for Continuing Indwelling Catheter: Hospice/Comfort/Palliative Care Urinary Catheter Date of Insertion: 08/22/23 Urinary Catheter Time of Insertion: 02:25 Discharge Data Studies Completed and Pending Completed Studies During Hospitalization Category Date Time Status CT abdomen RS [CT kidney stone [id number]] Stat Cat Scan 08/22/23 01:00 Completed XR chest 1V portable [id number] Stat Exams 08/21/23 22:35 Completed Pending at discharge Category Date Time Status Irradiated Leuko Red RBC Stat Lab 08/22/23 03:26 Results PRBC [Leukocyte Reduced RBC] Routine Lab 08/22/23 03:26 Results Type and Screen Stat Lab 08/22/23 03:26 Results Radiology Impressions Chest X-Ray 08/21/23 22:35 IMPRESSION: Moderate interstitial coarsening is nonspecific, likely chronic change. Edema or atypical infection could also cause this appearance. Abdomen/Pelvis CT 08/22/23 01:00 IMPRESSION: 1. Severe bilateral hydroureteronephrosis the level of the urinary bladder. 2. Moderate to markedly distended urinary bladder multiple bladder diverticula, likely related to marked prostatomegaly. 3. Diffuse increased density throughout the mesentery likely related to diffuse edema. Severe anasarca and small pleural effusions are noted. 4. Questionable intra and extrahepatic ductal dilatation, not well assessed. Correlate with serum bilirubin. Laboratory Results WBC 11.23 10^3/uL (3.29-11.43) 08/22/23 10:35 RBC 2.33 10^6/uL (3.85-5.65) L 08/22/23 10:35 Hgb 7.00 g/dL (11.27-16.99) L 08/22/23 10:35 Hct 22.7 % (37-53) L 08/22/23 10:35 MCV 97.4 fl (82-101) 08/22/23 10:35 MCH 30.0 pg (27-33) 08/22/23 10:35 MCHC 30.8 g/dL (30-55) 08/22/23 10:35 RDW 17.2 % (12.1-15.1) H 08/22/23 10:35 Plt Count 134 10^3/cmm (157-399) L 08/22/23 10:35 MPV 10.6 fL (7.4-10.4) H 08/22/23 10:35 Neut % (Auto) 93.6 % 08/22/23 10:35 Lymph % (Auto) 1.2 % 08/22/23 10:35 [place] % (Auto) 4.4 % 08/22/23 10:35 Eos % (Auto) 0.0 % 08/22/23 10:35 Baso % (Auto) 0.2 % 08/22/23 10:35 Neut # (Auto) 10.51 10^3/uL (1.8-7.7) H 08/22/23 10:35 Lymph # (Auto) 0.1 10^3/uL (0.8-4.8) L 08/22/23 10:35 [place] # (Auto) 0.5 10^3/uL (0.2-0.9) 08/22/23 10:35 Eos # (Auto) 0.0 10^3/uL (0.0-0.8) 08/22/23 10:35 Baso # (Auto) 0.0 10^3/uL (0.0-0.1) 08/22/23 10:35 Nucleated RBC % (auto) 0.2 % 08/22/23 10:35 Nucleated RBCs # 0.0 /100WBC 08/22/23 10:35 Specimen Type Arterial 08/22/23 07:53 Sample Site Brachial, left 08/22/23 07:53 ABG pH 7.37 (7.35-7.45) 08/22/23 07:53 ABG pCO2 26.8 mmHg (35-45) L 08/22/23 07:53 ABG pO2 332.0 mmHg (80.0-100.0) H 08/22/23 07:53 ABG PO2/FiO2 Ratio 332 08/22/23 07:53 ABG HCO3 15.4 mmol/L (22-26) L 08/22/23 07:53 ABG O2 Saturation > 100.0 08/22/23 07:53 ABG Base Excess -9.0 mmol/L (-2.0-2.0) L 08/22/23 07:53 Avinash Test Pos 08/22/23 07:53 A-a O2 Gradient 44.3 mmHg (5-10) H 08/22/23 07:53 Hematocrit 24.2 % (42-52) L 08/22/23 07:53 Hgb O2 Saturation 99.1 % (95-100) 08/22/23 07:53 Carboxyhemoglobin 1.2 %THgb (0.4-20.1) 08/22/23 07:53 Methemoglobin 0.4 % (0.4-1.5) 08/22/23 07:53 Total Hemoglobin 7.9 g/dL (14-18) L 08/22/23 07:53 Sodium 137.0 mmol/L (131-143) 08/22/23 07:53 Potassium 5.2 mmol/L (3.5-5.0) H 08/22/23 07:53 Glucose 120.0 mg/dL (70-115) H 08/22/23 07:53 Ionized Calcium 1.0 mmol/L (1.1-1.4) L 08/22/23 07:53 O2 Delivery Device Bipap 08/22/23 07:53 FiO2 100.0 % 08/22/23 07:53 Construction Code Administrator ID Cak 08/22/23 07:53 Sodium 137 mmol/L (136-145) 08/22/23 10:35 Potassium 5.1 mmol/L (3.5-5.1) 08/22/23 10:35 Chloride 100 mmol/L (98-107) 08/22/23 10:35 Carbon Dioxide 19 mmol/L (22-29) L 08/22/23 10:35 Anion Gap 23.1 (5-19) H 08/22/23 10:35 BUN 135 mg/dL (8-23) H* 08/22/23 10:35 Creatinine 8.8 mg/dL (0.7-1.2) H* 08/22/23 10:35 GFR Calculation Not Reportable 08/22/23 10:35 Glucose 171 mg/dL (65-115) H 08/22/23 10:35 POC Glucose 125 mg/dL (70-110) H 08/22/23 12:37 Estimat Average Glucose 103 08/21/23 22:32 Hemoglobin A1c 5.2 % (4.0-6.0) 08/21/23 22:32 Calculated Osmolality 332 mOsm/kg (285-295) H 08/22/23 10:35 Uric Acid 9.0 mg/dL (3.4-7.0) H 08/22/23 03:26 Calcium 7.0 mg/dL (8.5-10.5) L 08/22/23 10:35 Phosphorus 6.4 mg/dL (2.5-4.5) H 08/22/23 04:42 Magnesium 1.9 mg/dL (1.7-2.3) 08/22/23 04:42 Iron 14 ug/dL (59-158) L 08/22/23 04:42 TIBC 244 mcg/dl 08/22/23 04:42 % Saturation 5.7 % (20-50) L 08/22/23 04:42 Unsat Iron Binding 230 ug/dL (112-347) 08/22/23 04:42 Ferritin 121 ng/mL (30-400) 08/22/23 04:42 Troponin T Baseline 1323 ng/L (0-15) H* 08/22/23 04:42 Troponin T 120 Minute 1276 ng/L (0-15) H 08/22/23 06:54 Delta Troponin T -47 ABS# (0-10) L 08/22/23 06:54 Troponin T Hi Sens 6Hr 1099 ng/L (0-15) H 08/22/23 10:35 Troponin T Hi Sens 6Hr Delta -224 ng/L (0-12) L 08/22/23 10:35 NT-Pro-B Natriuret Pep > 35208 pg/mL (0-450) H 08/22/23 04:42 Vitamin B12 1747 pg/mL (232-1245) H 08/22/23 03:26 TSH 4.12 uIU/mL (0.27-4.20) 08/21/23 22:32 Urine Color Yellow (Yellow) 08/22/23 02:33 Urine Appearance Cloudy (CLEAR) A 08/22/23 02:33 Urine pH 6 (5-7) 08/22/23 02:33 Ur Specific [place] 1.010 (1.005-1.030) 08/22/23 02:33 Urine Protein 1+ (Negative) H 08/22/23 02:33 Urine Glucose (UA) Norm (Normal) 08/22/23 02:33 Urine Ketones Negative (Negative) 08/22/23 02:33 Urine Blood 3+ (Negative) H 08/22/23 02:33 Urine Nitrate Negative (Negative) 08/22/23 02:33 Urine Bilirubin Neg (Negative) 08/22/23 02:33 Urine Urobilinogen Neg mg/dL (Negative) 08/22/23 02:33 Ur Leukocyte Esterase 2+ (Negative) H 08/22/23 02:33 Urine RBC 5-10 /hpf (0-2) H 08/22/23 02:33 Urine WBC 80-100 /hpf (0-5) H 08/22/23 02:33 Ur Squamous Epith Cells 0-4 /hpf (0-5) H 08/22/23 02:33 Amorphous Sediment Not Reportable 08/22/23 02:33 Urine Bacteria 3+ /hpf (NONE) H 08/22/23 02:33 Ur Random Sodium 51 mmol/L 08/22/23 14:00 Ur Random Potassium 38 mmol/L 08/22/23 14:00 Ur Random Chloride 40 mmol/L 08/22/23 14:00 Urine Creatinine 53 mg/dL (39-259) 08/22/23 14:00 C. difficile (PCR) Negative (Negative) 08/22/23 08:15 Hepatitis C Antibody Non-reactive (Nonreactive) 08/22/23 03:26 Blood Type O Positive 08/22/23 03:26 Rho(D) Type Rh positive 08/22/23 03:26 Antibody Screen Negative 08/22/23 03:26 Crossmatch See Detail 08/22/23 03:26 Vitals Last Vital Signs Temp 97.6 F 08/23/23 20:00 Pulse 90 08/23/23 20:00 Resp 18 08/24/23 08:43 BP 84/63 08/23/23 20:00 Pulse Ox 93 08/23/23 20:00 O2 Del Method Nasal Cannula 08/23/23 20:00 O2 Flow Rate 2 08/23/23 22:39 FiO2 30 08/22/23 09:24 Discharge Plan Discharge Patient Disposition: er SNF Condition: Critical Prescriptions: New morphine concentrate 10 mg/0.5 mL Syringe 10 mg sublingual Q2H PRN (Reason: Moderate To Severe Pain or SOB) Qty: 1 0RF Ativan 1 mg tablet 1 mg buccal Q8H PRN (Reason: anxiety) Qty: 7 0RF Discharge Orders: Discharge Order (Routine); Ordered 08/24/23 Ordered By: Jacy Lane Referrals: [facility] [Outside] Discharge Diet: Full LIquid Patient Instructions: Opioid Safety Discharge Attestations Time Spent in Discharge Care*: less than 30 min Quality Metrics Clinical Quality Measures [ No reported AMI, CVA or VTE this stay] Coding Level of Care Code Acute Code for Chg Fwd Diagnoses Physical deconditioning R53.81 Sarcopenia M62.84 Anemia D64.9 Acute on chronic urinary retention R33.9 Hyperkalemia E87.5 MICHELLE (acute kidney injury) N17.9 Thrombocytopenia D69.6 NSTEMI (non-ST elevated myocardial infarction) I21.4 Need for comfort care
--- NOTE | 2023-08-24 12:47 | PC.NURSE ---
jaun pending ride from [facility]
[2023-08-24 13:21] VITALS: RESP 17
--- NOTE | 2023-08-24 14:12 | PC.NURSE ---
report called to [facility]
[2023-08-24 14:43] LABS: SARS Covid-2 Antigen negative (Negative)
[2023-08-24 15:28] VITALS: RESP 12
== END 2023-08-24 19:04 | disposition hospice, inpatient (51) | DRG 281 ==
LOC: ER 08-22 00:54 → MEDSURG 08-22 01:50 → ICU 08-22 05:52 → MEDSURG 08-22 17:25
PROVIDERS: Internal Medicine Nephrology; Student in an Organized Health Care Education/Training Program; Admitting Provider Internal Medicine; Emergency Provider Emergency Medicine; Visit Provider Internal Medicine
DX: I21.4 Non-ST elevation (NSTEMI) myocardial infarction (principal); E87.29 Other acidosis; N17.9 Acute kidney failure, unspecified; N13.6 Pyonephrosis; N18.9 Chronic kidney disease, unspecified; D50.9 Iron deficiency anemia, unspecified; Z53.1 Procedure and treatment not carried out because of patient's decision for reasons of belief and group pressure; Z66 Do not resuscitate; E87.5 Hyperkalemia; M62.84 Sarcopenia; D69.6 Thrombocytopenia, unspecified; E83.39 Other disorders of phosphorus metabolism; Z51.5 Encounter for palliative care; R33.9 Retention of urine, unspecified; N32.0 Bladder-neck obstruction
CPT/HCPCS: 36415; 36416; 36600; 51702; 71045; 74176; 80048; 80051; 81001; 82274; 82330; 82436; 82570; 82607; 82728; 82805; 82962; 83036; 83540; 83550; 83735; 83880; 84100; 84133; 84300; 84443; 84484; 84550; 85025; 86803; 86850; 86900; 86920; 87086; 87426; 87493; 93005; 94640; 94660; 96361; 96372; 96374; 99285; C9113; J0696; J1610; J1630; J1815; J1940; J2060; J2270; J2916; J7030; J7070; J7613; J7799; Q3014; Q4081